=== PATIENT | male | born 1995 | race Caucasian/White ===

== ENCOUNTER 2017-12-30 20:45 | Emergency (ER) | payer SELFPAY ==
[2017-12-30 23:52] LABS: Absolute Lymphocytes (CBC) 3.9 K/uL (0.7-4.9); Absolute Monocytes 0.9 K/uL (0.1-1.3); Absolute Neutrophil 7.4 K/uL (1.8-8.0); Basophils % 0.6 % (0-1.3); Eosinophils % 1.9 % (0-4.4); Hematocrit 45.2 % (39.6-49.0); Lymphocytes % 31.2 % (15.3-44.8); MCH 30.5 pg (27.0-35.0); MCV 89.9 fL (80-100); MPV 7.2 fL (7.6-11.3); Monocytes % 7.5 % (3.3-12.3); RBC Red Blood Cell Count 5.03 M/uL (4.33-5.43)
[2017-12-30 23:53] LABS: Protime INR 1.06
[2017-12-30 23:55] LABS: Bicarbonate 30 mEq/L (21-31); Glucose Level 102 mg/dL (65-120); Potassium 3.7 mEq/L (3.6-5.0); Sodium Level 138 mEq/L (135-145)
[2017-12-31 00:01] LABS: ALT/SGPT 14 IU/L (10-60); AST/SGOT 27 IU/L (10-42); Albumin 4.2 g/dL (3.2-5.5); Alkaline Phosphatase 73 IU/L (42-121); BUN Blood Urea Nitrogen 16 mg/dL (6-20); Bilirubin Direct 0.1 mg/dL (0-0.2); Bilirubin Total 0.5 mg/dL (0.3-1.2); Protein, Total 7.1 g/dL (6.0-8.3)
[2017-12-31 00:19] LABS: Salicylates Level < 4.0 mg/dl (<30)
[2017-12-31 00:20] LABS: Alcohol Serum/Plasma < 10 mg/dl
[2017-12-31 03:30] LABS: Urine Blood NEGATIVE (NEG); Urine Glucose NEGATIVE (NEG); Urine Protein 1+ (NEG); Urine Specific Gravity 1.025 (1.005-1.030)
[2017-12-31 03:34] LABS: Barbiturates NEGATIVE; Benzodiazepines NEGATIVE; Cocaine NEGATIVE; Opiates NEGATIVE; Phencyclidine NEGATIVE; THC Cannibis POSITIVE
[2017-12-31 03:43] LABS: METHAMPHETAM POSITIVE
--- NOTE | 2017-12-31 07:01 | EKG ---
Test Date: 2017-12-30 Test Time: 23:23:01 Public Safety Director: ELIO MEASUREMENT RESULTS: Intervals: Rate: 52 VA: 124 QRSD: 90 QT: 408 QTc: 379 [place]: P: -13 VA: 124 QRS: 91 T: 67 INTERPRETIVE STATEMENTS: Sinus bradycardia Rightward axis Early repolarization Borderline ECG No previous ECG available for comparison Electronically Signed On 12-31-17 07:00:57 CDT by Thom Law
--- NOTE | 2017-12-31 13:57 | ER ---
Nurse's Notes [facility] Name: Sam Roy Age: 22 yrs Sex: Male : 1995 Arrival Date: 12/30/2017 Time: 20:45 Bed 8 Private MD: Diagnosis: Major depressive disorder, recurrent;Suicidal ideations Presentation: 12/30 20:40 Presenting complaint: EMS states: that pt is suicidal and has been having thoughts x 1 fc week. Pt states that he planned to overdose on over the counter medications. Transition of care: patient was not received from another setting of care. Onset of symptoms was December 23, 2017. Initial Sepsis Screen: Does the patient meet any 2 criteria? No. Patient's initial sepsis screen is negative. Does the patient have a suspected source of infection? No. Patient's initial sepsis screen is negative. Care prior to arrival: None. 20:40 Method Of Arrival: EMS: [facility] 20:40 Acuity: EL 2 fc Historical: - Allergies: 21:34 No Known Allergies; tl2 - Home Meds: 21:34 None [Active]; tl2 - PMHx: 21:34 None; tl2 - Immunization history:: Last tetanus immunization: unknown. - Social history:: Smoking status: Patient uses tobacco products, 1 1/2 ppd, Patient uses alcohol, occasionally. street drugs, cocaine, marijuana, Methamphetamine (Meth). Screenin:45 Abuse screen: Denies threats or abuse. Nutritional screening: No deficits noted. fc Tuberculosis screening: No symptoms or risk factors identified. Fall Risk None identified. Assessment: 21:29 General: Appears in no apparent distress. Behavior is cooperative, appropriate for age, tl2 anxious. Pain: Denies pain. Neuro: Level of Consciousness is awake, alert, obeys commands, Oriented to person, place, time, situation. Cardiovascular: Denies chest pain. Respiratory: Airway is patent Respiratory effort is even, unlabored, Respiratory pattern is regular, symmetrical. GI: No signs and/or symptoms were reported involving the gastrointestinal system. : No signs and/or symptoms were reported regarding the genitourinary system. Derm: Skin is pink, warm \\T\\ dry. 22:11 Reassessment: MD has not placed orders due to conflict with [facility]. No orders placed at 2 this time. 23:31 Reassessment: Patient appears in no apparent distress at this time. Patient and/or tl2 family updated on plan of care and expected duration. Pain level reassessed. Patient is alert, oriented x 3, equal unlabored respirations, skin warm/dry/pink. MD ordered for toxic screen and will move forward with protocol for voluntary commitment. 12/31 00:11 Reassessment: Patient appears in no apparent distress at this time. Patient and/or tl2 family updated on plan of care and expected duration. Pain level reassessed. Patient is alert, oriented x 3, equal unlabored respirations, skin warm/dry/pink. 05:51 Reassessment: Pt has been sleeping for the majority of the night. No questions or tl2 concerns. Pt is cooperative. 07:00 Reassessment: Patient appears in no apparent distress at this time. Patient and/or tw2 family updated on plan of care and expected duration. Pain level reassessed. Patient is alert, oriented x 3, equal unlabored respirations, skin warm/dry/pink. see observation notes. 09:00 Reassessment: Patient appears in no apparent distress at this time. Patient and/or tw2 family updated on plan of care and expected duration. Pain level reassessed. Patient is alert, oriented x 3, equal unlabored respirations, skin warm/dry/pink. see observation notes. 10:28 Reassessment: Patient appears in no apparent distress at this time. Patient and/or tw2 family updated on plan of care and expected duration. Pain level reassessed. Patient is alert, oriented x 3, equal unlabored respirations, skin warm/dry/pink. see observations notes. 13:10 Reassessment: pt states "i do not feel like killing myself or others now, my ex took tw2 off with my two kids and that set me off, so i just like freaked out, but im good now, i cant go to [place] and be that far away, I have a brother here, but he is homeless too, but I am going to try to get a job and go to a clinic too where i can get some help" and "i just really want to get out of here, get back on my feet and get a smoke, I need a cigarette", provider notified, will visit with pt and discharge if agreeable. 14:20 Reassessment: Patient appears in no apparent distress at this time. Patient and/or tw2 family updated on plan of care and expected duration. Pain level reassessed. Patient is alert, oriented x 3, equal unlabored respirations, skin warm/dry/pink. Psych: 12/30 20:49 Subjective: Patient's mood is hopeless, Delusions are denied, Hallucinations are denied fc Having thoughts of suicide. Plan for suicide is to overdose on over the counter medications. Objective: Patient is cooperative, Speech is normal, Affect is appropriate, Patient has mutilated themselves by pt is a cutter. Interventions: Removed personal items and placed in bag. Patient placed in hospital gown. Searched person for dangerous items. Suicide Risk Assessment: Sad Person Scale: Sex of patient: Male: Score 1 point. Age of patient: Score 1 point if patient 15-34. Depression: Score 1 point if signs of depression are present. Previous Attempt: Score 1 point if patient has previously attempted suicide. Substance Abuse: Score 1 point if patient abuses alcohol or drugs. Rational Thinking: Score 0 point if patient has rational thinking. Social Support: Score 1 point if social support is lacking and/or unavailable. Organized Plan: Score 1 point if patient had a plan in place. Relationship: Score 1 point if patient is , , , or for a single male Chronic Sickness: Score 0 point if patient does not have a chronic illness, debilitating, or severe disorder. TOTAL POINTS: If total points are 7-10, the proposed clinical action is to hospitalize or commit. Implement suicide precautions. Safety Checks: Personal items have been removed. Door is open. No visitors are present at this time. pt admits to Meth, Crack and Pot but none recently. 21:00 Safety Checks: Personal items have been removed. Door is open. No visitors are present tl2 at this time. 21:15 Safety Checks: Personal items have been removed. Door is open. No visitors are present tl2 at this time. 21:30 Safety Checks: Personal items have been removed. Door is open. No visitors are present tl2 at this time. 21:45 Safety Checks: Personal items have been removed. Door is open. No visitors are present tl2 at this time. 22:00 Safety Checks: Personal items have been removed. Door is open. No visitors are present tl2 at this time. 22:12 Commitment: Patient will be a voluntary commitment. tl2 22:15 Safety Checks: Personal items have been removed. Door is open. No visitors are present tl2 at this time. 22:30 Safety Checks: Personal items have been removed. Door is open. No visitors are present tl2 at this time. 22:45 Safety Checks: Personal items have been removed. Door is open. No visitors are present tl2 at this time. 23:00 Safety Checks: Personal items have been removed. Door is open. No visitors are present tl2 at this time. 23:15 Safety Checks: Personal items have been removed. Door is open. No visitors are present tl2 at this time. 23:30 Safety Checks: Personal items have been removed. Door is open. No visitors are present tl2 at this time. 23:45 Safety Checks: Personal items have been removed. Door is open. No visitors are present tl2 at this time. 12/31 00:00 Safety Checks: Personal items have been removed. Door is open. No visitors are present tl2 at this time. 00:15 Safety Checks: Personal items have been removed. Door is open. No visitors are present tl2 at this time. 00:30 Safety Checks: Personal items have been removed. Door is open. No visitors are present tl2 at this time. 00:45 Safety Checks: Personal items have been removed. Door is open. No visitors are present tl2 at this time. 01:00 Safety Checks: Personal items have been removed. Door is open. No visitors are present tl2 at this time. 01:15 Safety Checks: Personal items have been removed. Door is open. No visitors are present tl2 at this time. 01:30 Safety Checks: Personal items have been removed. Door is open. No visitors are present tl2 at this time. 01:45 Safety Checks: Personal items have been removed. Door is open. No visitors are present tl2 at this time. 02:00 Safety Checks: Personal items have been removed. Door is open. No visitors are present tl2 at this time. 02:15 Safety Checks: Personal items have been removed. Door is open. No visitors are present tl2 at this time. 02:30 Safety Checks: Personal items have been removed. Door is open. No visitors are present tl2 at this time. 02:45 Safety Checks: Personal items have been removed. Door is open. No visitors are present tl2 at this time. Vital Signs: 12/30 20:40 BP 136 / 94; Pulse 80; Resp 18; Temp 98.6(O); Pulse Ox 99% on R/A; Weight 58.97 kg (R); fc Height 5 ft. 8 in. (172.72 cm) (R); Pain 0/10; 12/31 05:51 BP 117 / 72; Pulse 60; Resp 18; Pulse Ox 97% on R/A; Pain 0/10; tl2 09:21 BP 129 / 80; Pulse 65; Resp 16; Pulse Ox 98% on R/A; mw2 14:12 BP 120 / 82; Pulse 68; Resp 16; Pulse Ox 98% on R/A; mw2 12/30 20:40 Body Mass Index 19.77 (58.97 kg, 172.72 cm) ED Course: 12/30 20:40 Arm band placed on Patient placed in an exam room, on a stretcher. fc 20:45 Patient arrived in ED. fc 20:45 Patient has correct armband on for positive identification. Bed in low position. Call fc light in reach. 20:46 Farshad Bobo MD is Attending Physician. gs 20:47 Triage completed. fc 23:23 Inserted saline lock: 20 gauge in right antecubital area, using aseptic technique. tl2 Blood collected. 23:28 Sandra Knight, VELIA is Primary Nurse. tl2 12/31 02:03 [facility] notified. rg2 02:55 Urine collected: clean catch specimen, cloudy, brady colored, Amount Voided: 100mL. cb2 03:00 Safety checks: Items removed: yes. Door open/sign placed on door: yes. Family/friend cc present: no. 03:00 Patient has correct armband on for positive identification. Bed in low position. Call cc light in reach. 03:15 Safety checks: Items removed: yes. Door open/sign placed on door: yes. Family/friend cc present: no. Patient has correct armband on for positive identification. Bed in low position. Call light in reach. 03:30 Safety checks: Items removed: yes. Door open/sign placed on door: yes. Family/friend cc present: no. Patient has correct armband on for positive identification. Bed in low position. Call light in reach. 03:45 Safety checks: Items removed: yes. Door open/sign placed on door: yes. Family/friend cc present: no. Patient has correct armband on for positive identification. Bed in low position. Call light in reach. 04:00 Safety checks: Items removed: yes. Door open/sign placed on door: yes. Family/friend cc present: no. Patient has correct armband on for positive identification. Bed in low position. Call light in reach. 04:15 Safety checks: Items removed: yes. Door open/sign placed on door: yes. Family/friend cc present: no. Patient has correct armband on for positive identification. Bed in low position. Call light in reach. 04:30 Safety checks: Items removed: yes. Door open/sign placed on door: yes. Family/friend cc present: no. Patient has correct armband on for positive identification. Bed in low position. Call light in reach. 04:45 Safety checks: Items removed: yes. Door open/sign placed on door: yes. Family/friend cc present: no. Patient has correct armband on for positive identification. Bed in low position. Call light in reach. 05:00 Safety checks: Items removed: yes. Door open/sign placed on door: yes. Family/friend cc present: no. Patient has correct armband on for positive identification. Bed in low position. Call light in reach. 05:15 Safety checks: Items removed: yes. Door open/sign placed on door: yes. Family/friend cc present: no. Patient has correct armband on for positive identification. Bed in low position. Call light in reach. 05:30 Safety Checks: Personal items have been removed The door is open or patient has been tl2 placed in a hallway bed/chair. There are no family/friend visitors at this time. 05:45 Safety Checks: Personal items have been removed The door is open or patient has been tl2 placed in a hallway bed/chair. There are no family/friend visitors at this time. 06:00 Safety Checks: Personal items have been removed The door is open or patient has been tl2 placed in a hallway bed/chair. There are no family/friend visitors at this time. 06:15 Safety Checks: Personal items have been removed The door is open or patient has been tl2 placed in a hallway bed/chair. There are no family/friend visitors at this time. 06:30 Safety Checks: Personal items have been removed The door is open or patient has been tl2 placed in a hallway bed/chair. There are no family/friend visitors at this time. 06:45 Safety Checks: Personal items have been removed The door is open or patient has been tl2 placed in a hallway bed/chair. There are no family/friend visitors at this time. 07:00 No apparent distress. Resting quietly. Appears to be sleeping. Safety Checks: Personal tw2 items have been removed The door is open or patient has been placed in a hallway bed/chair. There are no family/friend visitors at this time. 07:09 Primary Nurse role handed off by Sandra Knight RN tw2 07:09 Kitty Frazier RN is Primary Nurse. tw2 07:15 No apparent distress. Appears to be sleeping. Safety Checks: Personal items have been tw2 removed The door is open or patient has been placed in a hallway bed/chair. There are no family/friend visitors at this time. 07:30 Safety Checks: Personal items have been removed The door is open or patient has been tw2 placed in a hallway bed/chair. There are no family/friend visitors at this time. 07:45 Safety Checks: Personal items have been removed The door is open or patient has been tw2 placed in a hallway bed/chair. There are no family/friend visitors at this time. 07:50 Safety Checks: Personal items have been removed The door is open or patient has been tw2 placed in a hallway bed/chair. There are no family/friend visitors at this time. 08:00 Safety Checks: Personal items have been removed The door is open or patient has been tw2 placed in a hallway bed/chair. There are no family/friend visitors at this time. 08:00 Safety Checks: There are no family/friend visitors at this time Sitter present and at tw2 bedside, scheduled to remain during shift. 08:15 Safety Checks: Personal items have been removed The door is open or patient has been tw2 placed in a hallway bed/chair. There are no family/friend visitors at this time. 08:30 Safety Checks: Personal items have been removed The door is open or patient has been tw2 placed in a hallway bed/chair. There are no family/friend visitors at this time. 08:45 Safety Checks: Personal items have been removed The door is open or patient has been tw2 placed in a hallway bed/chair. There are no family/friend visitors at this time. 09:00 Safety Checks: Personal items have been removed The door is open or patient has been tw2 placed in a hallway bed/chair. There are no family/friend visitors at this time. 09:15 Safety Checks: Personal items have been removed The door is open or patient has been tw2 placed in a hallway bed/chair. There are no family/friend visitors at this time. 09:30 Safety Checks: Personal items have been removed The door is open or patient has been tw2 placed in a hallway bed/chair. There are no family/friend visitors at this time. 09:30 No apparent distress. [facility] member present for evaluation, breakfast provided, NAD. tw2 09:34 No provider procedures requiring assistance completed. tw2 09:45 No apparent distress. Resting quietly. Safety Checks: Personal items have been removed tw2 The door is open or patient has been placed in a hallway bed/chair. There are no family/friend visitors at this time. 10:00 No apparent distress. Appears to be sleeping. sitter from hospital remains at bedside. tw2 Safety Checks: Personal items have been removed The door is open or patient has been placed in a hallway bed/chair. There are no family/friend visitors at this time. 10:13 Safety Checks: Personal items have been removed The door is open or patient has been tw2 placed in a hallway bed/chair. There are no family/friend visitors at this time. 10:15 Safety Checks: Personal items have been removed The door is open or patient has been tw2 placed in a hallway bed/chair. There are no family/friend visitors at this time. 10:30 Safety Checks: Personal items have been removed The door is open or patient has been tw2 placed in a hallway bed/chair. There are no family/friend visitors at this time. 10:45 Safety Checks: Personal items have been removed The door is open or patient has been tw2 placed in a hallway bed/chair. There are no family/friend visitors at this time. 11:00 Safety Checks: Personal items have been removed The door is open or patient has been tw2 placed in a hallway bed/chair. There are no family/friend visitors at this time. 11:00 No apparent distress. Appears to be sleeping. tw2 11:15 Safety Checks: Personal items have been removed The door is open or patient has been tw2 placed in a hallway bed/chair. There are no family/friend visitors at this time. 11:30 Safety Checks: Personal items have been removed The door is open or patient has been tw2 placed in a hallway bed/chair. There are no family/friend visitors at this time. 11:45 Safety Checks: Personal items have been removed The door is open or patient has been tw2 placed in a hallway bed/chair. There are no family/friend visitors at this time. 12:00 No apparent distress. Resting quietly. Appears to be sleeping. Safety Checks: Personal tw2 items have been removed The door is open or patient has been placed in a hallway bed/chair. There are no family/friend visitors at this time. 12:15 Safety Checks: Personal items have been removed The door is open or patient has been tw2 placed in a hallway bed/chair. There are no family/friend visitors at this time. 12:30 Safety Checks: Personal items have been removed The door is open or patient has been tw2 placed in a hallway bed/chair. There are no family/friend visitors at this time. 12:45 eating lunch tray at this time. Safety Checks: Personal items have been removed The tw2 door is open or patient has been placed in a hallway bed/chair. There are no family/friend visitors at this time. 13:00 Safety Checks: Personal items have been removed The door is open or patient has been tw2 placed in a hallway bed/chair. There are no family/friend visitors at this time. 13:15 Safety Checks: Personal items have been removed The door is open or patient has been tw2 placed in a hallway bed/chair. There are no family/friend visitors at this time. 13:30 Safety Checks: Personal items have been removed The door is open or patient has been tw2 placed in a hallway bed/chair. There are no family/friend visitors at this time. 13:45 Safety Checks: Personal items have been removed The door is open or patient has been tw2 placed in a hallway bed/chair. There are no family/friend visitors at this time. 13:55 Attending Physician role handed off by Farshad Bobo MD [facility] 13:55 Finesse Perdomo MD is Attending Physician. kdr 14:00 No apparent distress. Resting quietly. lunch tray provided. Safety Checks: Personal tw2 items have been removed The door is open or patient has been placed in a hallway bed/chair. There are no family/friend visitors at this time. 14:15 No apparent distress. pt dressed and ready to go at this time. Safety Checks: Personal tw2 items have been removed The door is open or patient has been placed in a hallway bed/chair. There are no family/friend visitors at this time. 14:23 Safety Checks: Personal items have been removed The door is open or patient has been tw2 placed in a hallway bed/chair. There are no family/friend visitors at this time. 14:24 IV discontinued, intact, bleeding controlled, No redness/swelling at site. Pressure tw2 dressing applied. Administered Medications: No medications were administered Outcome: 13:56 Discharge ordered by . kdr 14:23 Discharged to Unknown ambulatory, pt has skateboard states "i am going to [facility]" tw2 14:23 Condition: stable 14:23 Discharge instructions given to patient, Instructed on discharge instructions, follow up and referral plans. Demonstrated understanding of instructions, follow-up care. 14:25 Patient left the ED. tw2 Signatures: Madeline Moss rg2 Finesse Perdomo MD MD [facility] Rebecca Bonilla RN RN Rocio Coronado Kitty Frazier RN RN tw2 Sandra Knight RN RN 2 Cliff Villanueva [facility] Farshad oBbo MD MD Fuad Mims 2 Corrections: (The following items were deleted from the chart) 06:51 06:50 Safety Checks: Personal items have been removed The door is open or patient has tl2 been placed in a hallway bed/chair. There are no family/friend visitors at this time tl2 06:51 06:50 Safety Checks: Personal items have been removed The door is open or patient has tl2 been placed in a hallway bed/chair. There are no family/friend visitors at this time tl2 06:51 06:50 Safety Checks: Personal items have been removed The door is open or patient has tl2 been placed in a hallway bed/chair. There are no family/friend visitors at this time tl2 06:51 06:50 Safety Checks: tl2 tl2 09:33 07:50 Safety Checks: Personal items have been removed The door is open or patient has tw2 been placed in a hallway bed/chair. There are no family/friend visitors at this time tw2 : 07:50 Safety Checks: Personal items have been removed The door is open or patient has tw2 been placed in a hallway bed/chair. There are no family/friend visitors at this time tw2 : 07:50 Safety Checks: Personal items have been removed The door is open or patient has tw2 been placed in a hallway bed/chair. There are no family/friend visitors at this time tw2 : 07:50 Safety Checks: Personal items have been removed The door is open or patient has tw2 been placed in a hallway bed/chair. There are no family/friend visitors at this time tw2 : 07:50 Safety Checks: Personal items have been removed The door is open or patient has tw2 been placed in a hallway bed/chair. There are no family/friend visitors at this time tw2 : 07:50 Safety Checks: Personal items have been removed The door is open or patient has tw2 been placed in a hallway bed/chair. There are no family/friend visitors at this time tw2 : 07:50 Safety Checks: Personal items have been removed The door is open or patient has tw2 been placed in a hallway bed/chair. There are no family/friend visitors at this time tw2 10:18 10:13 Safety Checks: Personal items have been removed The door is open or patient has tw2 been placed in a hallway bed/chair. There are no family/friend visitors at this time tw2 10:41 10:13 Safety Checks: Personal items have been removed The door is open or patient has tw2 been placed in a hallway bed/chair. There are no family/friend visitors at this time tw2 10:48 10:13 Safety Checks: Personal items have been removed The door is open or patient has tw2 been placed in a hallway bed/chair. There are no family/friend visitors at this time tw2 11:07 10:13 Safety Checks: Personal items have been removed The door is open or patient has tw2 been placed in a hallway bed/chair. There are no family/friend visitors at this time tw2 11:53 10:13 Safety Checks: Personal items have been removed The door is open or patient has tw2 been placed in a hallway bed/chair. There are no family/friend visitors at this time tw2 11:53 10:13 Safety Checks: Personal items have been removed The door is open or patient has tw2 been placed in a hallway bed/chair. There are no family/friend visitors at this time tw2
--- NOTE | 2017-12-31 13:57 | EDPHYS ---
Physician Documentation [facility] Name: Sam Roy Age: 22 yrs Sex: Male : 1995 Arrival Date: 12/30/2017 Time: 20:45 Bed 8 Private MD: ED Physician Finesse Perdomo HPI: 12/31 00:55 This 22 yrs old Male presents to ER via EMS with complaints of Suicidal gs Ideation. 00:55 The patient presents to the emergency department with depression, over a relationship, gs a history of substance abuse, suicide ideation, but the patient has no formulated plan. Onset: The symptoms/episode began/occurred 1 month(s) ago, and became worse and became persistent. Past psychiatric history: Prior diagnosis: depression. Associated signs and symptoms: Pertinent negatives: hallucinations, homicidal ideation, tremor. Severity of symptoms: At their worst the symptoms were moderate in the emergency department the symptoms are unchanged. The patient has experienced similar episodes in the past, several times. The patient has not recently seen a physician. Historical: - Allergies: 12/30 21:34 No Known Allergies; tl2 - Home Meds: 21:34 None [Active]; tl2 - PMHx: 21:34 None; tl2 - Immunization history:: Last tetanus immunization: unknown. - Social history:: Smoking status: Patient uses tobacco products, 1 1/2 ppd, Patient uses alcohol, occasionally. street drugs, cocaine, marijuana, Methamphetamine (Meth). ROS: 12/31 00:55 All other systems are negative. gs 19:02 Constitutional: Negative for fever, chills, and weight loss. kdr Exam: 12/30 23:27 ECG was reviewed by the Attending Physician. gs 12/31 00:55 Head/Face: Normocephalic, atraumatic. Eyes: Pupils equal round and reactive to light, gs extra-ocular motions intact. Lids and lashes normal. Conjunctiva and sclera are non-icteric and not injected. Cornea within normal limits. Periorbital areas with no swelling, redness, or edema. ENT: Nares patent. No nasal discharge, no septal abnormalities noted. Tympanic membranes are normal and external auditory canals are clear. Oropharynx with no redness, swelling, or masses, exudates, or evidence of obstruction, uvula midline. Mucous membranes moist. Neck: Trachea midline, no thyromegaly or masses palpated, and no cervical lymphadenopathy. Supple, full range of motion without nuchal rigidity, or vertebral point tenderness. No Meningismus. Chest/axilla: Normal chest wall appearance and motion. Nontender with no deformity. No lesions are appreciated. Respiratory: Lungs have equal breath sounds bilaterally, clear to auscultation and percussion. No rales, rhonchi or wheezes noted. No increased work of breathing, no retractions or nasal flaring. Abdomen/GI: Soft, non-tender, with normal bowel sounds. No distension or tympany. No guarding or rebound. No evidence of tenderness throughout. Back: No spinal tenderness. No costovertebral tenderness. Full range of motion. Skin: Warm, dry with normal turgor. Normal color with no rashes, no lesions, and no evidence of cellulitis. MS/ Extremity: Pulses equal, no cyanosis. Neurovascular intact. Full, normal range of motion. Neuro: Awake and alert, GCS 15, oriented to person, place, time, and situation. Cranial nerves II-XII grossly intact. Motor strength 5/5 in all extremities. Sensory grossly intact. Cerebellar exam normal. Normal gait. Constitutional: The patient appears alert, awake. Psych: Behavior/mood is cooperative, Affect is flat, Oriented to person, place, time, Patient having thoughts of suicide. Denies suicidal plan. Judgement / Insight is impaired. Delusions/hallucinations are not present. Vital Signs: 12/30 20:40 BP 136 / 94; Pulse 80; Resp 18; Temp 98.6(O); Pulse Ox 99% on R/A; Weight 58.97 kg (R); fc Height 5 ft. 8 in. (172.72 cm) (R); Pain 0/10; 12/31 05:51 BP 117 / 72; Pulse 60; Resp 18; Pulse Ox 97% on R/A; Pain 0/10; tl2 09:21 BP 129 / 80; Pulse 65; Resp 16; Pulse Ox 98% on R/A; mw2 14:12 BP 120 / 82; Pulse 68; Resp 16; Pulse Ox 98% on R/A; mw2 12/30 20:40 Body Mass Index 19.77 (58.97 kg, 172.72 cm) fc MDM: 12/30 21:05 Patient medically screened. 12/31 14:00 Data reviewed: vital signs, nurses notes. ED course: The patient states that he is no kdr longer suicidal. He indicated that he just had a bad day yesterday and the his x-girl friend was giving him trouble, per patient about his kids. He denies any intent or plan. He wants to get back to work at the [employer] so he can get enough money together to get back with his kids.. 12/30 22:49 Order name: Acetaminophen; Complete Time: 03:47 12/30 22:49 Order name: Basic Metabolic Panel; Complete Time: 03:47 12/30 22:49 Order name: CBC with Diff; Complete Time: 03:47 12/30 22:49 Order name: ETOH Level; Complete Time: 03:47 12/30 22:49 Order name: Hepatic Function; Complete Time: 03:47 12/30 22:49 Order name: PT-INR; Complete Time: 03:47 12/30 22:49 Order name: Salicylate; Complete Time: 03:47 12/30 22:49 Order name: Urine Drug Screen; Complete Time: 03:47 12/30 22:49 Order name: EKG; Complete Time: 22:50 12/30 22:49 Order name: EKG - Nurse/Tech; Complete Time: 23:23 12/30 22:49 Order name: IV Saline Lock; Complete Time: 23:23 12/31 03:00 Order name: Urine Dipstick--Ancillary (enter results); Complete Time: 03:47 rg2 12/31 07:07 Order name: Diet Regular; Complete Time: 07:07 tl2 12/31 11:54 Order name: Diet Regular; Complete Time: 11:54 tw2 12/30 22:49 Order name: Labs collected and sent; Complete Time: 23:23 12/30 22:49 Order name: Urine Dipstick-Ancillary (obtain specimen); Complete Time: 02:51 gs EC/19 23:27 Rate is 52 beats/min. Rhythm is regular, Sinus bradycardia. T waves are Normal. No ST gs changes noted. Clinical impression: Abnormal EKG without significant change. Interpreted by me. Administered Medications: No medications were administered Disposition: 12/31/17 13:56 Discharged to Home. Impression: Major depressive disorder, recurrent, Suicidal ideations. - Condition is Stable. - Discharge Instructions: Depression, Adult, Helping Someone Who is Suicidal, No-harm Safety Contract. - Medication Reconciliation Form, Thank You Letter form. - Follow up: Private Physician; When: 1 - 2 days; Reason: If symptoms return, Further diagnostic work-up, Recheck today's complaints, Continuance of care, Re-evaluation by your physician. - Problem is an acute exacerbation. - Symptoms are resolved. Signatures: Dispatcher [employer] EDMS Finesse Perdomo MD MD [facility] Rebecca Bonilla RN RN fc Kitty Frazier RN RN tw2 KnightSandra RN RN tl2 Farshad Bobo MD MD
== END 2017-12-31 14:25 | disposition home or self-care (01) ==
LOC: ER 20:45
DX: F33.9 Major depressive disorder, recurrent, unspecified (principal)
CPT/HCPCS: 36415; 80048; 80076; 80307; 80320; 80329; 81003; 85025; 85610; 93005; 99284